=== PATIENT | female | born 1995 | race Caucasian/White ===

== ENCOUNTER 2016-07-26 20:03 | Emergency (ER) | payer OTHER ==
[2016-07-26 21:36] LABS: % BASOPHILS 0.6 % (0.0-2.0); % EOSINOPHILS 1.8 % (0.0-5.0); % LYMPHOCYTES 23.8 % (20.0-50.0); % MONOCYTES 5.7 % (2.0-10.0); % NEUTROPHILS 68.1 % (40.0-80.0); HEMOGLOBIN 11.4 gm/dL (11.7-15.5); MEAN CELL VOLUME 90.1 fl (81-100); MEAN CORPUSCULAR HGB CONC 34.4 pg (28.0-36.0); MEAN PLATELET VOLUME 9.7 fl; NEUTROPHILE ABSOLUTE 7.3 Th/cmm (1.8-8.0); PLATELET COUNT 208 Th/cmm (150-400); RED BLOOD COUNT 3.67 Mil/cmm (3.80-5.10); RED CELL DISTRIBUTION WIDTH 11.6 % (11.5-20.0); WHITE BLOOD COUNT 10.7 Th/cmm (4.8-10.8)
[2016-07-26 21:51] LABS: ANION GAP 8.2 (7.0-16.0); BUN - UREA NITROGEN 7 mg/dL (7-25); CALCIUM SERUM 9.4 mg/dL (8.6-10.3); CARBON DIOXIDE 24.4 mEq/L (21.0-31.0); CHLORIDE 103 mEq/L (98-107); CREATININE - SERUM 0.5 mg/dL (0.6-1.2); GLUCOSE 84 mg/dL (70-105); POTASSIUM SERUM 3.6 mEq/L (3.5-5.1); SODIUM SERUM 132 mEq/L (136-145)
[2016-07-26 22:26] LABS: URINE BILIRUBIN NEGATIVE (NEGATIVE); URINE COLOR YELLOW; URINE GLUCOSE (UA) NEGATIVE (NEGATIVE); URINE KETONE NEGATIVE (NEGATIVE)
[2016-07-26 22:32] LABS: URINE BLOOD NEGATIVE (NEGATIVE); URINE PH 6.5; URINE PROTEIN NEGATIVE (NEGATIVE); URINE UROBILINOGEN 0.2 E.U./dL (0.2 - 1.0)
[2016-07-26 22:33] LABS: URINE BACTERIA 1+ /hpf (NONE SEEN); URINE EPITHELIAL CELLS FEW /lpf (FEW); URINE RBC 0-2 /hpf (0-5)
--- NOTE | 2016-07-26 23:03 | ED Physician Chart ---
Chief Complaint/HPI - Patient Information Date Seen:: 07/26/16 Time Seen:: 22:50 Chief Complaint:: syncopal episode History of Present Illness:: This morning right after patient stepped into the shower she became dizzy. She sat down and then passed out for an unknown period of time. Patient is 26 weeks . She is 1. She frequently has to stand up slowly because if she stands up quickly she gets dizzy. Patient has had no prior syncopal episodes. Allergies:: Allergies Allergy/AdvReac Type Severity Reaction Status Date / Time No Known Allergies Allergy Verified 07/26/16 20:28 Vitals:: Vital Signs - 8 hr 07/26/16 07/26/16 20:20 22:16 Temp 98.2 F 98 F HR 75 80 RR 18 16 BP 105/62 114/84 O2 Sat % 100 100 Historian:: Patient Review:: Nurse's Note Reviewed Review of Systems - Review of Systems General/Constitutional: No fever, No chills Skin: No skin lesions Head: No headache Eyes: No loss of vision ENT: No earache Neck: No neck pain Cardio Vascular: No chest pain, No palpitations Pulmonary: No SOB GI: Nausea G/U: No dysuria Musculoskeletal: No bone or joint pain Endocrine: No polyuria Psychiatric: No prior psych history, No depression Hematopoietic: No bruising Allergic/Immuno: No urticaria Neurological: Syncope Family Medical History - Family Member Mother History Unknown: Yes Ethnicity: Physical Exam - Physical Examination General/Constitutional: Awake, Well-developed, well-nourished, Alert, No distress Head: Atraumatic Eyes: Lids, conjuctiva normal, PERRL Skin: Nl inspection, No rash, No skin lesions, No ecchymosis ENMT: External ears, nose nl, TM canals nl, Nasal exam nl, Lips, teeth, gums nl , Oropharynx nl, Tonsils nl Neck: No nuchal rigidity Cardio Vascular: RRR GI: No tenderness/rebounding/guarding, No hernia Other GI comments:: Uterus elevated to midway between the umbilicus and the xiphoid process Extremities: Normal digits & nails Neuro/Psych: No focal deficits Misc: No paraspinal tenderness Labs/Radiology/EKG Results - Lab Results Results: Laboratory Tests 07/26/16 07/26/16 07/26/16 21:25 21:27 21:27 WBC 10.7 RBC 3.67 L Hgb 11.4 L Hct 33.0 L MCV 90.1 MCH 31.0 MCHC Differential 34.4 RDW 11.6 Plt Count 208 MPV 9.7 Neutrophils % 68.1 Lymphocytes % 23.8 Monocytes % 5.7 Eosinophils % 1.8 Basophils % 0.6 Sodium 132 L Potassium 3.6 Chloride 103 Carbon Dioxide 24.4 Anion Gap 8.2 BUN 7 Creatinine 0.5 L Est GFR ( Amer) > 60.0 Est GFR (Non-Af Amer) > 60.0 BUN/Creatinine Ratio 14.0 Glucose 84 Calcium 9.4 Urine Source RANDOM Urine Color YELLOW Urine Clarity SLIGHT HAZY Urine pH 6.5 Ur Specific [place] 1.015 Urine Protein NEGATIVE Urine Glucose (UA) NEGATIVE Urine Ketones NEGATIVE Urine Blood NEGATIVE Urine Nitrate NEGATIVE Urine Bilirubin NEGATIVE Urine Urobilinogen 0.2 Ur Leukocyte Esterase MODERATE H Urine RBC 0-2 Urine WBC 10-25 H Ur Epithelial Cells FEW Urine Bacteria 1+ H - EKG Interpretations Rate & Rhythm: normal sinus rhythm rate 59 [place]: normal axis Comments:: Normal EKG ED Septic Shock - . Is Septic Shock (SBP<90, OR Lactate>4 mmol\L) present?: No - <6hrs of presentation: Vital Signs: Vital Signs - 8 hr 07/26/16 07/26/16 20:20 22:16 Temp 98.2 F 98 F HR 75 80 RR 18 16 BP 105/62 114/84 O2 Sat % 100 100 Reassessment (Disposition) - Reassessment Reassessment Condition:: Improved - Diagnosis Diagnosis:: Vasovagal syncope; normal intrauterine - Aftercare/Follow up Instructions Aftercare/Follow-Up Instructions:: Refer to Discharge Instructions - Patient Disposition Discharge/Transfer:: Home Condition at Disposition:: Stable, Unchanged ED Discharge Plan - Patient Disposition Instructions: Vasovagal Syncope, Adult
== END 2016-07-26 23:18 | disposition home or self-care (01) ==
LOC: ER 20:03
DX: O99.352 Diseases of the nervous system complicating pregnancy, second trimester (principal); R55 Syncope and collapse; Z3A.26 26 weeks gestation of pregnancy
CPT/HCPCS: 36415-UA; 80048-TC; 81001-TC; 85025-TC; 87086-90; 93005